=== PATIENT | male | born 1985 | race Caucasian/White ===

== ENCOUNTER 2016-05-06 00:36 | Observation (INO) | payer MEDICARE, MEDICAID ==
[2016-05-06 00:42] VITALS: BMI 24.5
[2016-05-06 00:57] VITALS: TEMP 98.4
[2016-05-06] MEDS ORDERED: LORAZEPAM 2 MG/ML VIAL IM ONE (01:06)
[2016-05-06] MEDS ORDERED: HALOPERIDOL 5 MG/ML VIAL IM ONE (01:06)
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
[2016-05-06 03:27] LABS: ALL NEG? NO
[2016-05-06 03:29] LABS: AUTOMATED BASOPHIL 1.2 % (0-2); AUTOMATED EOSINOPHIL 0.9 % (0-5); AUTOMATED LYMPH 20.9 % (17-44); AUTOMATED MONOCYTE 7.9 % (3-10); AUTOMATED NEUTROPHIL 69.1 % (45-76); MPV 8.3 fL (7.4-10.4)
[2016-05-06 03:33] LABS: METHAMPHETAMINES *POSITIVE* (NEGATIVE)
[2016-05-06 03:34] LABS: MDMA* *POSITIVE* (NEGATIVE); OXYCODONE NEG (NEGATIVE)
[2016-05-06 03:39] LABS: BLOOD UREA NITROGEN 23 MG/DL (9-20); CALCIUM 9.2 MG/DL (8.4-10.2); CALCULATED OSMOLALITY 271 MOs/Kg (270-290); CHLORIDE 101 mEq/L (98-107); ETOH-MGDL < 10 mg/dL; GLUCOSE 84 MG/DL (70-99); SODIUM LEVEL 139 mEq/L (137-146); TOTAL PROTEIN 7.2 G/DL (6.3-8.2)
--- NOTE | 2016-05-06 07:03 | DIRPT ---
CLINICAL DATA: Right hand swelling. Unknown history. Initial encounter. EXAM: RIGHT HAND - COMPLETE 3+ VIEW COMPARISON: 06/18/2006 FINDINGS: Monitor obscures the tip of the index finger. Elsewhere, no evidence of acute fracture or malalignment. There is remote and healed fifth metacarpal fracture. Dorsal hand soft tissue swelling without opaque foreign body. IMPRESSION: Soft tissue swelling without acute osseous finding. Electronically Signed By: Martinez Rand M.D. On: 05/06/2016 07:00
[2016-05-06] MEDS ORDERED: CLINDAMYCIN 150 MG CAP PO ONE (10:00)
[2016-05-06 10:16] VITALS: BP 110/73; PULSE 65
== END 2016-05-06 10:16 | disposition home or self-care (01) ==
LOC: ED 00:36 → EDINP 03:49
PROVIDERS: ADMIT Emergency Medicine; ATTEND Emergency Medicine
DX: F19.10 Other psychoactive substance abuse, uncomplicated (principal); R45.6 Violent behavior; F23 Brief psychotic disorder; L03.113 Cellulitis of right upper limb; F17.200 Nicotine dependence, unspecified, uncomplicated
CPT/HCPCS: 36415; 73130; 80053; 80307; 85025; 93005; 96372; 99284; G0378; J1630; J2060; J3490